=== PATIENT | male | born 1985 | race Caucasian/White ===

== ENCOUNTER 2019-08-11 17:08 | Emergency (ER) | payer OTHER ==
[2019-08-11] MEDS ORDERED: IBUPROFEN 600 MG TABLET PO ONE (18:16)
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
--- NOTE | 2019-08-11 19:26 | RADIOLOGY REPORT (SQ) ---
EXAM DESCRIPTION: RIBS RIGHT W/PA CHEST COMPLETED DATE/TIME: 08/11/2019 7:00 pm REASON FOR STUDY: Rt rib pain s/p injury COMPARISON: None. TECHNIQUE: Frontal view of the chest and additional views of the right ribs acquired. NUMBER OF VIEWS: Three view. LIMITATIONS: None. FINDINGS: FRONTAL CXR: No pneumothorax. No pleural effusion. No atelectasis or infiltrates. RIBS: No displaced rib fractures. No lytic or blastic bony lesions. OTHER: No other significant finding. IMPRESSION: NO PNEUMOTHORAX. NO DISPLACED RIB FRACTURES. COMMENT: SITE OF TRAUMA/COMPLAINT MARKED/STAMP COMPLETED: NO. TECHNICAL DOCUMENTATION: JOB ID: [id number] [id number] 2010 [employer]- All Rights Reserved Reading location - IP/workstation name: [employer]
[2019-08-11 19:58] VITALS: BP 122/62
== END 2019-08-11 20:05 | disposition home or self-care (01) ==
LOC: ER 17:08
DX: R07.81 Pleurodynia (principal); Y04.2XXA Assault by strike against or bumped into by another person, initial encounter
CPT/HCPCS: 99283

== ENCOUNTER 2019-09-03 11:18 | Emergency (ER) | payer OTHER ==
[2019-09-03 11:31] VITALS: BP 118/74
[2019-09-03] MEDS ORDERED: LIDOCAINE 4%/TETRACAINE 0.5%/EPI 0.18% 5 ML TOPICAL SOLN TOP ONE (12:32)
--- NOTE | 2019-09-03 12:34 | ER Document Report ---
ED Medical Screen (RME) - General Chief Complaint: Head Injury Stated Complaint: HEAD INJURY Time Seen by Provider: 09/03/19 12:32 [facility] Care Provider: [facility] [[facility]] - Follow up as needed Information source: Patient Notes: Patient states that he stood up under a cabinet hitting his scalp. Patient with laceration to apex of scalp that occurred about 17 hours ago. There was no loss of consciousness no nausea or vomiting. Patient states that he would like the wound to be closed if it is needed at this time. Spoke with Dr. Harris who states that wound could be closed as it is on the scalp if it continues to gape once it has been cleansed. Advises explained to patient increased risk of infection but states that it is a reasonable plan of care if the wound opens up TRAVEL OUTSIDE OF THE [place] IN LAST 30 DAYS: No - Related Data Allergies/Adverse Reactions: No Known Allergies Allergy (Verified 09/03/19 12:25) Past Medical History - Social History Chew tobacco use (# tins/day): No Frequency of alcohol use: None Drug Abuse: None Renal/ Medical History: Denies: Hx Peritoneal Dialysis Physical Exam - Vital signs Vitals: Temp Pulse Resp BP Pulse Ox 98.2 F 90 16 118/74 97 09/03/19 11:31 09/03/19 11:31 09/03/19 11:31 09/03/19 11:31 09/03/19 11:31 - General Notes: Crusted laceration to apex of scalp, no active bleeding at this time Course - Vital Signs Vital signs: Temp Pulse Resp BP Pulse Ox 98.2 F 90 16 118/74 97 09/03/19 11:31 09/03/19 11:31 09/03/19 11:31 09/03/19 11:31 09/03/19 11:31 Doctor's Discharge - Discharge Referrals: [facility] [Primary [facility]] - Follow up as needed
--- NOTE | 2019-09-03 13:07 | ER Document Report ---
HPI - HPI Time Seen by Provider: 09/03/19 12:32 Pain Level: 3 Notes: Patient states that he stood up under a cabinet hitting his scalp. Patient with laceration to apex of scalp that occurred about 17 hours ago. There was no loss of consciousness no nausea or vomiting. Patient states that he would like the wound to be closed if it is needed at this time. - CONSTITUTIONAL Constitutional: DENIES: Fever, Chills - EENT EENT: DENIES: Sore Throat, Ear Pain, Eye problems - NEURO Neurology: DENIES: Headache, Weakness, Vision blurred, Dizzinesss / Vertigo - CARDIOVASCULAR Cardiovascular: DENIES: Chest pain - RESPIRATORY Respiratory: DENIES: Trouble Breathing, Coughing - GASTROINTESTINAL Gastrointestinal: DENIES: Abdominal Pain, Black / Bloody Stools - URINARY Urinary: DENIES: Dysuria, Urgency, Frequency - MUSCULOSKELETAL Musculoskeletal: DENIES: Extremity pain Past Medical History - General Information source: Patient - Social History Smoking Status: Current Every Day Smoker Chew tobacco use (# tins/day): No Frequency of alcohol use: None Drug Abuse: None Family History: Reviewed & Not Pertinent Patient has suicidal ideation: No Patient has homicidal ideation: No Renal/ Medical History: Denies: Hx Peritoneal Dialysis Vertical Provider Document - CONSTITUTIONAL Notes: PHYSICAL EXAMINATION: GENERAL: Well-appearing, well-nourished and in no acute distress. HEAD: Atraumatic, normocephalic. EYES: Pupils equal round extraocular movements intact, conjunctiva are normal. ENT: Nares patent NECK: Normal range of motion LUNGS: No respiratory distress Musculoskeletal: Normal range of motion NEUROLOGICAL: Normal speech, normal gait. PSYCH: Normal mood, normal affect. SKIN: 2 superficial lacerations noted to the front of the scalp, these are closed and approximated well. - INFECTION CONTROL TRAVEL OUTSIDE OF THE [place] IN LAST 30 DAYS: No Course - Re-evaluation Re-evalutation: Well-appearing 34-year-old male presenting after sustaining a laceration to his scalp about 17 hours prior to arrival. His vital signs are within normal limits. He did not pass out and has not had vomiting. He has no headache or complaints of confusion or any other serious signs of head trauma. After wound was thoroughly cleaned and evaluated there is no indication for closure at this time. There are 2 very superficial lacerations that have already healed over to the scalp area. Patient given instructions on how to properly care for this, he was instructed to apply a thin layer of triple antibiotic ointment to the area twice daily. ED return precautions were discussed. Patient verbalizes understanding and agreement with plan. - Vital Signs Vital signs: Temp Pulse Resp BP Pulse Ox 98.2 F 90 16 118/74 97 09/03/19 11:31 09/03/19 11:31 09/03/19 11:31 09/03/19 11:31 09/03/19 11:31 Discharge - Discharge Clinical Impression: Scalp laceration Qualifiers: Encounter type: initial encounter Qualified Code(s): S01.01XA - Laceration without foreign body of scalp, initial encounter Condition: Stable Disposition: HOME, SELF-CARE Additional Instructions: Please continue to apply a thin layer of triple antibiotic ointment to the area twice daily. This should be completely healed up within the next 3 to 5 days. Follow-up with your primary care provider with any new or worsening concerns. Return to the emergency department with any concerns. Referrals: [facility] [Primary Care Provider] - Follow up as needed
== END 2019-09-03 13:19 | disposition home or self-care (01) ==
LOC: ER 11:18
DX: S01.01XA Laceration without foreign body of scalp, initial encounter (principal); W22.8XXA Striking against or struck by other objects, initial encounter; F17.200 Nicotine dependence, unspecified, uncomplicated
CPT/HCPCS: 99283